=== PATIENT | male | born 1990 | race African-American/Black ===

== ENCOUNTER 2021-08-08 20:52 | Emergency (ER) | payer SELFPAY ==
[2021-08-08 20:59] VITALS: BMI 41.1
[2021-08-08] MEDS ORDERED: LACTATED RINGERS SOLUTION 1000 ML INFUS.BAG IV ONE (21:38)
[2021-08-08 22:42] LABS: BASO % 0.7 % (0-2.0); HEMATOCRIT 43.6 % (35.4-49); HEMOGLOBIN 14.1 GM/dL (11.7-16.9); LYMPH % 21.1 % (8-40); MCH 25.7 pg (25.7-33.7); MCHC 32.3 g/dl (32.0-35.9); MEAN CELL VOLUME 79.7 fl (80-96); MEAN PLT VOLUME 8.1 fl (7.5-11.1); MONO % 12.2 % (3.8-10.2); PLATELET COUNT 295 10^3/uL (134-434); RBC 5.47 M/mm3 (4.00-5.60); WHITE BLOOD COUNT 9.9 K/mm3 (4.0-10.0)
[2021-08-08 23:08] LABS: CHLORIDE 106 mmol/L (98-107); SODIUM 141 mmol/L (136-145)
[2021-08-08 23:10] LABS: CALCIUM 8.7 mg/dL (8.5-10.1)
[2021-08-08 23:11] LABS: ALBUMIN 3.8 g/dl (3.4-5.0); ANION GAP 8 MMOL/L (8-16); BLOOD UREA NITROGEN 17.2 mg/dL (7-18); CO2 28 mmol/L (21-32); GLUCOSE,RANDOM 96 mg/dL (74-106)
[2021-08-08 23:14] LABS: CREATININE 1.3 mg/dL (0.55-1.3); SGOT/AST 39 U/L (15-37); SGPT/ALT 81 U/L (13-61)
[2021-08-08 23:16] LABS: BILIRUBIN,TOTAL 0.3 mg/dL (0.2-1); TOT PROT 7.8 g/dl (6.4-8.2)
[2021-08-08 23:17] LABS: ALK PHOS 93 U/L (45-117)
[2021-08-09 00:25] VITALS: BP 142/78; PULSE 81; TEMP 98.2
== END 2021-08-09 00:25 | disposition home or self-care (01) ==
LOC: JER 20:52
DX: R00.2 Palpitations (principal)
CPT/HCPCS: 36415; 71046-TC-FY; 80053; 82550; 82553; 84439; 84443; 84484; 85025; 93005; 93010; 99284-25; C9803; U0003; U0005